=== PATIENT | male | born 1950 | race Caucasian/White ===

== ENCOUNTER 2017-04-15 13:51 | Observation (INO) | payer MEDICARE ==
[2017-04-15 14:15] VITALS: BMI 39.2
--- NOTE | 2017-04-15 14:17 | ED PDOC ---
Arrival/HPI - General Time Seen by Provider: 04/15/17 13:54 - History of Present Illness Narrative History of Present Illness (Text): 66 y/o M c PMHx HTN, DM, ESRD on HD TThS p/w anemia. Patient sent from care home with Hb 6 on labs. Patient states he has been having significant bleeding from his AV fistula, which has now resolved but did put out 2.5 cups of blood yesterday. He reports general weakness and lightheadedness. He denies chest pain , dyspnea, LOC, nausea, vomiting, bloody or black stool. Family/Social History Family/Social History: No Known Family HX Allergies/Home Meds Allergies/Adverse Reactions: Allergies aspirin Allergy (Verified 04/15/17 14:13) SHORTNESS OF BREATH clopidogrel [From Plavix] Allergy (Verified 04/15/17 14:13) SHORTNESS OF BREATH iodine Allergy (Verified 04/15/17 14:13) SHORTNESS OF BREATH penicillin G Allergy (Verified 04/15/17 14:13) SHORTNESS OF BREATH Review of Systems - Physician Review All systems were reviewed & negative as marked: Yes - Review of Systems Constitutional: absent: Fevers Cardiovascular: absent: Chest Pain Physical Exam - Physical Exam Narrative Physical Exam (Text): Gen: Appears weak Head: Atraumatic Eyes: No scleral icterus ENT: MMM Neck: Supple Chest: No tenderness CV: Regular rate Resp: No accessory muscle use Abd: Soft, NT Skin: No rash Extremities: L arm fistula without active bleeding Neuro: Alert, no focal deficit Vital Signs Pulse Resp BP Pulse Ox 04/15/17 15:34 68 18 121/59 L 97 04/15/17 14:15 70 16 123/55 L 96 Medical Decision Making ED Course and Treatment: EKG NSR 70 bpm, RBBB, no ST elevations. HISTORY: Weakness. COMPARISON: No prior. FINDINGS: LUNGS: Pulmonary vascular congestion. PLEURA: No significant pleural effusion identified, no pneumothorax apparent. CARDIOVASCULAR: Cardiomegaly/ CHF. Macro CABG OSSEOUS STRUCTURES: No significant abnormalities. VISUALIZED UPPER ABDOMEN: Normal. OTHER FINDINGS: None. IMPRESSION: Cardiomegaly, presumed acute congestive heart failure. Lungs clear, SaO2 100% on room air. Blood transfusion ordered. Dr. Sarmiento accepts patient to his service. - Lab Interpretations Lab Results: 04/15/17 14:46 04/15/17 14:46 Lab Results 04/15/17 14:46: Sodium 142, Potassium 4.4, Chloride 97 L, Carbon Dioxide 36 H, Anion Gap 13, BUN 43 H, Creatinine 3.7 H, Est GFR ( Amer) 20, Est GFR ( Non-Af Amer) 17, Random Glucose 126 H, Calcium 9.6, Total Bilirubin 0.8, AST 48 , ALT 41, Alkaline Phosphatase 239 H, Total Protein 7.0, Albumin 3.3, Globulin 3.7, Albumin/Globulin Ratio 0.9 L 04/15/17 14:46: PT 16.3 H, INR 1.42 H, APTT 41.0 H 04/15/17 14:46: WBC 5.5, RBC 1.90 L, Hgb 6.5 L*, Hct 21.3 L, MCV 112.1 H, MCH 34.2, MCHC 30.5 L, RDW 17.0 H, Plt Count 191, MPV 9.5, Gran % 53.6, Lymph % ( Auto) 25.1, Kings % (Auto) 13.0 H, Eos % (Auto) 7.6 H, Baso % (Auto) 0.7, Gran # 2.96, Lymph # (Auto) 1.4, Kings # (Auto) 0.7 H, Eos # (Auto) 0.4, Baso # (Auto) 0.04 - RAD Interpretation Radiology Orders: 04/15/17 14:35 CHEST PORTABLE [RAD] Stat - Medication Orders Current Medication Orders: Discontinued Medications Albuterol/Ipratropium (Duoneb 3 Mg/0.5 Mg (3 Ml) Ud) 3 ml IH STAT STA Stop: 04/15/17 16:01 Morphine Sulfate (Morphine) 2 mg IVP STAT STA Stop: 04/15/17 15:57 Disposition/Present on Arrival - Present on Arrival Any Indicators Present on Arrival: No - Disposition Have Diagnosis and Disposition been Completed?: Yes Diagnosis: Symptomatic anemia Disposition: HOSPITALIZED Disposition Time: 16:05 Patient Plan: Observation, Telemetry Condition: FAIR
--- NOTE | 2017-04-15 15:12 | RAD ---
HISTORY: Weakness. COMPARISON: No prior. FINDINGS: LUNGS: Pulmonary vascular congestion. PLEURA: No significant pleural effusion identified, no pneumothorax apparent. CARDIOVASCULAR: Cardiomegaly/ CHF. Macro CABG OSSEOUS STRUCTURES: No significant abnormalities. VISUALIZED UPPER ABDOMEN: Normal. OTHER FINDINGS: None. IMPRESSION: Cardiomegaly, presumed acute congestive heart failure.
[2017-04-15 15:28] LABS: BASO # 0.04 K/mm3 (0.0-2.0); BASO % 0.7 % (0.0-3.0); EOS # 0.4 (0.0-0.7); EOS % 7.6 % (1.5-5.0); GRAN # 2.96 (1.4-6.5); GRAN % 53.6 % (50.0-68.0); LYMPH # 1.4 (1.2-3.4); LYMPH % 25.1 % (22.0-35.0); MEAN CELL VOLUME 112.1 fl (80.0-105.0); MEAN CORPUSCULAR HEMOGLOBIN 34.2 pg (25.0-35.0); MEAN CORPUSCULAR HGB CONC 30.5 g/dl (31.0-37.0); MEAN PLATELET VOLUME 9.5 fl (7.0-11.0); MONO # 0.7 (0.1-0.6); RBC 1.9 10^6/uL (3.5-6.1); WHITE BLOOD COUNT 5.5 10^3/ul (4.5-11.0)
[2017-04-15 15:34] LABS: HEMOGLOBIN 6.5 g/dL (14.0-18.0)
[2017-04-15 15:44] LABS: ALB/GLOB RATIO 0.9 (1.1-1.8); ALBUMIN 3.3 g/dL (3.0-4.8); CALCIUM 9.6 mg/dL (8.4-10.5)
[2017-04-15 15:48] LABS: INR 1.42 (0.93-1.08); PROTHROMBIN TIME 16.3 SECONDS (9.4-12.5)
[2017-04-15] MEDS ORDERED: Morphine 2 mg/ml ISec IVP STA (15:56)
[2017-04-15] MEDS ORDERED: Albuterol-Ipratrop 3 mg / 0.5 (3 ml) UD IH STA (16:00)
--- NOTE | 2017-04-15 17:03 | CARD ---
APPROVED REPORT EKG Measurement Heart [id number] <Conclusion> Normal sinus rhythm Right bundle branch block Abnormal ECG
[2017-04-15] MEDS ORDERED: Albuterol-Ipratrop 3 mg / 0.5 (3 ml) UD IH PRN (17:14)
[2017-04-15] MEDS ORDERED: Non Formulary Medication (Sevelamer Carbonate [Renvela] 800 MG) PO SCH (18:00)
[2017-04-15] MEDS ORDERED: Pneumococcal 23-Valent Vaccine IM ONE (21:41)
[2017-04-15] MEDS ORDERED: Influenza Vaccine 60 mcg/0.5 mL SYR (4YR UP) IM ONE (21:41)
[2017-04-15] MEDS: Insulin Reg-MEDIUM-Coverage SC SCH (22:22)
[2017-04-15] MEDS: Morphine 2 mg/ml ISec IVP PRN (22:25)
[2017-04-16] MEDS ORDERED: DiphenhydrAMINE 50 mg/ml Inj IVP STA (00:04)
--- NOTE | 2017-04-16 01:13 | HP ---
HISTORY OF PRESENT ILLNESS: Sent him over from [facility] for anemia. He first went to [facility], where he had a bleeding from his shunt for dialysis. They sent him back home. They did not do a blood test and look for anemia. I checked a blood test - it was 6, so I sent him to [facility]. We are now starting to transfuse him. He is a 66-year-old man, who I see at [facility]. PAST MEDICAL HISTORY: He has a past medical history of hypertension, diabetes, and end-stage renal disease - on hemodialysis. He has got anemia from a bleeding shunt, AV fistula, and now he is weak. We are going to start transfusing him. FAMILY HISTORY: He has no known family history. ALLERGIES: HE HAS ALLERGIES TO ASPIRIN, PLAVIX, IODINE AND PENICILLIN. REVIEW OF SYSTEMS: He is weak, feels lightheaded and dizzy. No acute vision or hearing changes. No sore throat. No chest pain or palpitations. No shortness of breath or cough. He is weak and lethargic a little bit. No abdominal pain, nausea, vomiting, constipation, or diarrhea. He can move his legs, though he is very weak. He has got multiple skin ulcers on his heels and sacral area. PHYSICAL EXAMINATION: GENERAL: He appears weak. VITAL SIGNS: He has 98 temperature, 69 pulse, 118/61 blood pressure, 18 respiratory rate, and 98% O2 saturation on room air. HEENT: His head is atraumatic, normocephalic. Throat is moist. NECK: Supple. Thyroid midline. HEART: Regular rate. LUNGS: Decreased breath sounds, but clear to auscultation. ABDOMEN: Soft. Morbidly obese. Nontender. Positive bowel sounds. No guarding, no rebound, and no CVA tenderness. EXTREMITIES: Left arm fistula without active bleeding at this time after they fixed it. NEUROLOGIC: He is alert and oriented x3. LYMPH NODES: No palpable, appreciable lymphadenopathy. LABORATORY DATA: He had a chest x-ray which showed some CHF. EKG which showed normal sinus rhythm with bundle-branch block. He had multiple blood tests. He has 142 sodium, potassium 4.4, BUN is 43, creatinine 3.7, GFR is 17 - he goes to dialysis tomorrow. Glucose is 126, calcium is 9.6, total bilirubin is 0.8, AST is 48, ALT is 41, alkaline phosphatase 239, total protein 7, albumin is 3.3, and INR is 1.42. He has got a 5.5 white count and a 6.5 hemoglobin, hematocrit is 21.3, and platelets are 191. IMPRESSION AND PLAN: He will be transfused 2 units of packed red blood cells. I consulted with systems management consultant, Dr. Garcia, and his kidney doctor, Dr. Kevin. We will transfuse him 2 units. Check his labs tomorrow. Put him back on his regular medications. Hopefully he will do well. He is in observation. I will try and discharge him back tomorrow to [facility] where he lives. Ken Sarmiento DO
[2017-04-16] MEDS: Morphine 2 mg/ml ISec IVP PRN ×2 (04:19→08:39)
[2017-04-16 06:36] VITALS: RESP 18
[2017-04-16 06:40] VITALS: O2SAT 99
[2017-04-16 08:21] LABS: HEMOGLOBIN 7.8 g/dL (14.0-18.0); MEAN CELL VOLUME 114.7 fl (80.0-105.0); MEAN CORPUSCULAR HGB CONC 32.2 g/dl (31.0-37.0); MEAN PLATELET VOLUME 8.9 fl (7.0-11.0); RBC 2.11 10^6/uL (3.5-6.1); RED CELL DISTRIBUTION WIDTH 18.5 % (11.5-14.5); WHITE BLOOD COUNT 7.5 10^3/ul (4.5-11.0)
[2017-04-16 08:30] LABS: ALB/GLOB RATIO 0.9 (1.1-1.8); ALBUMIN 3.2 g/dL (3.0-4.8); CALCIUM 9.6 mg/dL (8.4-10.5)
[2017-04-16] MEDS: Insulin Reg-MEDIUM-Coverage SC SCH ×4 (08:48→22:15)
[2017-04-16] MEDS ORDERED: Multivitamin Vitamin B Complex (Nephro-Vite) Tab PO SCH (10:00)
[2017-04-16] MEDS ORDERED: FOLIC ACID PO SCH (10:00)
[2017-04-16] MEDS ORDERED: VIT B COMPLEX AND C PO SCH (10:00)
[2017-04-16] MEDS ORDERED: Nitroglycerin 2% Ointment Foilpak UD TOP STA (11:44)
[2017-04-16 16:33] VITALS: BP 163/82; TEMP 97.9
--- NOTE | 2017-04-16 17:45 | CARD ---
APPROVED REPORT EKG Measurement Heart [id number] <Conclusion> Normal sinus rhythm Left axis deviation Right bundle branch block T wave abnormality, consider lateral ischemia Abnormal ECG
[2017-04-16 19:36] VITALS: PULSE 90
--- NOTE | 2017-04-16 23:58 | CON ---
DATE: NEPHROLOGY CONSULTATION LOCATION: [facility], [place]. HISTORY OF PRESENT ILLNESS: The patient is a 66-year-old male with past medical history of hypertension; diabetes; CAD, status post CABG; CVA with left-sided weakness; intermediate resident and ESRD, on hemodialysis (Thursday, , Thursday at [facility]. Scheduling Manager, Dr. Kevin). Sent to ED due to bleeding from left arm AV fistula. Nephrology consulted for ESRD care. The patient underwent hemodialysis per routine 2 days ago. The patient subsequently sent to [facility] emergency room due to bleeding from AV fistula site (per dialysis staff, he was not bleeding when they completed treatment and sent him upstairs to his room). In [facility] ED, the patient's bleeding was controlled and Gelfoam was applied to the site of ulceration to prevent further bleeding. The patient was subsequently discharged from ED back to nursing . However, primary physician had him sent back to ED this time in [facility] [place] due to concern that hemoglobin is too low. The patient reports never having problem previously with bleeding from fistula. Otherwise, the patient currently reporting some chest pain with feeling of heart protruding through chest. Also, reporting some shortness of breath more than usual. The patient was transfused 2 units PRBC with last transfusion occurring early this morning. PAST MEDICAL HISTORY: As above. SOCIAL HISTORY: Denies smoking. FAMILY HISTORY: Has family close by that are very supportive. REVIEW OF SYSTEMS: CONSTITUTIONAL: Had been eating well. RESPIRATORY: Some shortness of breath. CARDIOVASCULAR: As per HPI. GI: No nausea, vomiting or diarrhea. : Makes some urine. MUSCULOSKELETAL: Reporting back pain. SKIN: Ulceration over left arm AV fistula with pruritus in the area. NEUROLOGIC: The patient with residual left-sided weakness, is bed bound. PHYSICAL EXAMINATION: VITAL SIGNS: Vitals this morning, blood pressure 139/41, heart rate 77, respirations 18, temperature 98.4, O2 sat 99% on nasal cannula oxygen. GENERAL: No distress. Lying comfortably in bed, conversing coherently in full sentences. HEENT: Moist mucous membranes. Nonicteric. RESPIRATORY: Mild basilar rales present. Mildly tachypneic. CARDIOVASCULAR: Heart sounds S1, S2 normal. No murmurs. No gallops. No rubs. GI: Abdomen soft, nontender, nondistended. : No bladder distention. EXTREMITIES: Moderate bilateral lower leg edema. SKIN: Warm. No cyanosis. 1 cm area over distal left arm AV fistula with slight ulceration, but healed scab. EXTREMITIES: Left arm AV fistula with good thrill. PSYCHIATRIC: Mildly agitated at times. NEURO: No obvious tremor at rest. LABORATORY DATA: Labs this morning, CBC: WBC 7.5, hemoglobin 7.8, hematocrit 24.2, platelets 163. Chemistry panel: Sodium 143, potassium 4.6, chloride 99, bicarb 35, BUN 56, creatinine 4.5, glucose 115, calcium 9.6, T bili 2.4, alk phos 208, albumin 3.2. Chest x-ray directly visualized showing pulmonary venous congestion. ASSESSMENT AND PLAN: 1. End-stage renal disease, on hemodialysis. The patient with relatively stable electrolyte status. Does have evidence of volume overload on exam as well as chest x-ray findings. Relatively stable on nasal cannula oxygen; however, is in need of his dialysis session today for volume removal. We will dialyze while here over three and half hours with 2.2-2.5 L ultrafiltration goal. 2. Hypertension of end-stage renal disease. The patient on lisinopril 2.5 mg daily. Baseline blood pressure is unclear with the patient is on midodrine 5 mg t.i.d. which he was on as outpatient. A. Unclear why the patient is getting lisinopril as the patient does not have systolic dysfunction per previous echocardiogram. We will defer to outpatient household appliances salesperson B. Continue midodrine 5 mg t.i.d. 3. Chronic kidney disease mineral bone disorder. Corrected calcium is at higher end of normal. The patient currently on Renagel 1 tablet t.i.d. with meals. Continue the same. 4. Anemia. The patient's hemoglobin generally runs in the 9-10 g range. He has significant loss of blood due to atriovenous fistula bleeding. Bleeding is now controlled. Already received 2 units packed red blood cells. Repeat hemoglobin is 7.7. We will give one more unit packed red blood cells in light of the patient's reported chest pain and coronary artery disease status. 5. Coronary artery disease. The patient on Brilinta, Eliquis and aspirin. The patient has a high bleeding risk. Unclear when last stent was placed. If acceptable to household appliances salesperson, discontinue at least one antiplatelet agent to reduce the risk of bleeding especially in hemodialysis patient. Thank you for this referral. We will be following up with the patient's outpatient wet process head miller. Justin Valle MD NEEL
--- NOTE | 2017-04-17 06:15 | DS ---
HISTORY OF PRESENT ILLNESS: He got his 2 units of blood last night. His hemoglobin went up from 6.3 to 7.8. He is doing much better. His symptoms went away, the dizziness and everything. He is getting his dialysis today at 1'o clock at [facility]. It is now 9:30. We are going to try to get him there before then. PHYSICAL EXAMINATION: VITAL SIGNS: He has a 98.6 temp, 75 pulse, 151/49 blood pressure, 18 respiratory rate, 98% O2 sat on nasal cannula. HEENT: His head is atraumatic, normocephalic. HEART: Regular rate. LUNGS: Decreased breath sounds, but clear. ABDOMEN: Obese, nontender. EXTREMITIES: Trace edema. LABORATORY DATA: He has a 7.5 white count, 7.8 hemoglobin, 24.2 hematocrit, 163 platelets. He has 143 sodium, potassium of 4.6, 56 BUN, creatinine 4.5, GFR is 13, sugar is 115, calcium is 9.6, total bili is 2.4. AST is 56, ALT is 39, alk phos 208, total protein 6.9. ASSESSMENT AND PLAN: I am discharging him today. I will follow up there. I add iron to his medicine list, Feosol 324 one daily. I will him at [facility] tomorrow. Ken Sarmiento DO
--- NOTE | 2017-04-17 17:37 | CARD ---
APPROVED REPORT EKG Measurement Heart [id number] <Conclusion> Atrial fibrillation Right bundle branch block, plus right ventricular hypertrophy Abnormal ECG
== END 2017-04-16 23:00 | disposition home or self-care (01) ==
LOC: ED 13:51 → ERH 16:19 → 3RSO 18:49
PROVIDERS: ADMIT Family Medicine; ATTEND Family Medicine
DX: D50.0 Iron deficiency anemia secondary to blood loss (chronic) (principal); R42 Dizziness and giddiness; I12.0 Hypertensive chronic kidney disease with stage 5 chronic kidney disease or end stage renal disease; N18.6 End stage renal disease; E11.22 Type 2 diabetes mellitus with diabetic chronic kidney disease; I25.10 Atherosclerotic heart disease of native coronary artery without angina pectoris; Z99.2 Dependence on renal dialysis; I69.354 Hemiplegia and hemiparesis following cerebral infarction affecting left non-dominant side; M89.9 Disorder of bone, unspecified; Z95.1 Presence of aortocoronary bypass graft
CPT/HCPCS: 36415; 36430; 71045; 80053; 82948; 84484; 85018; 85025; 85027; 85610; 85730; 86850; 86870; 86900; 86920; 86921; 86922; 93005; 96374; 96375; 96376; 99285; G0378; J1200; J1940; J2270; P9016